=== PATIENT | female | born 1990 | race Caucasian/White ===

== ENCOUNTER 2017-10-05 10:44 | Outpatient (REF) | payer MEDICAID, SELFPAY ==
[2017-10-05 19:27] LABS: HCT 42.3 % (36.0-46.0); HGB 13.6 g/dL (12.0-15.5); Mean Corp. HGB Concentration 32.2 g/dL (32.0-36.0); Mean Corpuscular Hemoglobin 28.1 pg (27.0-33.0); Mean Corpuscular Volume 87.4 fL (80-95); Platelet Count 292 x1000/uL (130-400); RBC 4.84 m/cumm (4.00-5.20); RBC Distribution Width 15.2 % (11.7-14.6); White Blood Cell Count 4.87 k/cumm (4.4-10.8)
[2017-10-05 19:31] LABS: ALT 16 U/L (12-78); AST 19 U/L (15-37); Albumin 3.5 g/dL (3.4-5.0); Alkaline Phosphatase 85 U/L (46-116); Anion Gap 9.8 mmol/L (3-11); BUN 6 mg/dL (7-18); Bilirubin, Total 0.3 mg/dL (0.2-1.0); CO2 25.2 mmol/L (21.0-32.0); CREATININE 0.83 mg/dL (0.55-1.02); Calcium 8.5 mg/dL (8.5-10.1); Chloride 103 mmol/L (98-107); Cholesterol 283 mg/dL (50-200); Glucose 82 mg/dL (70-100); HDL Cholesterol 49 mg/dL (40-60); LDL CHOLESTEROL 208 mg/dL (<100); Potassium 3.8 mmol/L (3.5-5.1); Sodium 138 mmol/L (136-145); TSH (W/Ref FT4) 3.15 uIU/mL (0.358-3.74); Total Protein 7.6 g/dL (6.4-8.2); Triglyceride 103 mg/dL (30-150)
== END 2017-10-05 10:45 ==
LOC: NCHCN 10:44
PROVIDERS: PCP Nurse Practitioner Family; Visit Provider Nurse Practitioner Family
DX: R63.5 Abnormal weight gain (principal); Z87.448 Personal history of other diseases of urinary system
CPT/HCPCS: 80053; 80061; 83721; 85027; 84443

== ENCOUNTER 2018-06-23 13:04 | Outpatient (REF) | payer MEDICAID, SELFPAY ==
[2018-06-23 20:52] LABS: HCT 44.1 % (36.0-46.0); HGB 14.4 g/dL (12.0-15.5); Mean Corp. HGB Concentration 32.7 g/dL (32.0-36.0); Mean Corpuscular Hemoglobin 27.8 pg (27.0-33.0); Mean Corpuscular Volume 85.1 fL (80-95); Mean Platelet Volume 11.2 fL (8.0-11.0); Platelet Count 303 x1000/uL (130-400); RBC 5.18 m/cumm (4.00-5.20); RBC Distribution Width 13.8 % (11.7-14.6); White Blood Cell Count 8.12 k/cumm (4.4-10.8)
[2018-06-23 22:00] LABS: ALT 18 U/L (12-78); AST 15 U/L (15-37); Albumin 3.6 g/dL (3.4-5.0); Alkaline Phosphatase 121 U/L (46-116); BUN 5 mg/dL (7-18); Bilirubin, Total 0.5 mg/dL (0.2-1.0); CREATININE 0.82 mg/dL (0.55-1.02); Calcium 8.9 mg/dL (8.5-10.1); Chloride 101 mmol/L (98-107); Glucose 71 mg/dL (70-100); Potassium 4.3 mmol/L (3.5-5.1); Sodium 137 mmol/L (136-145); Total Protein 7.9 g/dL (6.4-8.2)
== END 2018-06-23 13:24 ==
LOC: NCHCN 13:04
PROVIDERS: PCP Physician Assistant Medical; Visit Provider Physician Assistant Medical
DX: R53.83 Other fatigue (principal); R63.5 Abnormal weight gain
CPT/HCPCS: 80053; 85027; 84443

== ENCOUNTER 2019-07-05 15:38 | Outpatient (REF) | payer MEDICAID, SELFPAY ==
--- NOTE | 2019-07-05 14:15 | PAPFT_PTH ---
PATIENT: Laisha Espino LOC: [facility] U#:[id number] AGE/SX: 29/F ROOM: RE07/05/[address]: Arminda Webber : 1990 BED: DIS: 07/05/2019 SPEC #: [id number] RECD: 07/06/19 12:12 STATUS: KRISTINA REQ #: [id number] VALERY: 07/05/19 14:[address]: Arminda Webber DEPT: [facility] Cytology RECD BY: Gaby Babin ENTERED: 07/06/19 12:12 SP TYPE: PAPFT OTHR DR: Jerel Hunter V Tissues: 1 - CX/ENDOCX FOR PAP SMEARS Procedures: PAP THIN PREP/[facility] Screening Comments: [id number]
== END 2019-07-05 15:58 ==
LOC: NCHCN 15:38
PROVIDERS: PCP Physician Assistant Medical; Visit Provider Physician Assistant
DX: Z12.4 Encounter for screening for malignant neoplasm of cervix (principal); Z01.419 Encounter for gynecological examination (general) (routine) without abnormal findings
CPT/HCPCS: 88142

== ENCOUNTER 2019-07-07 11:30 | Outpatient (REF) | payer MEDICAID, SELFPAY ==
[2019-07-07 18:50] LABS: Abs Immature Grans 0.02 k/cumm (0.0-0.09); Absolute Basophil Count 0.02 k/cumm (0.0-0.2); Absolute Eosinophil Count 0.26 k/cumm (0.0-0.7); Absolute Lymphocyte Count 1.99 k/cumm (1.2-3.4); Basophils % 0.3; Eosinophils % 3.3; HCT 40.6 % (36.0-46.0); HGB 13.3 g/dL (12.0-15.5); Immature Grans % 0.3 %; Lymphocytes % 24.9; Mean Corp. HGB Concentration 32.8 g/dL (32.0-36.0); Mean Corpuscular Hemoglobin 28.9 pg (27.0-33.0); Mean Corpuscular Volume 88.1 fL (80-95); Mean Platelet Volume 11.7 fL (8.0-11.0); Monocytes % 7.5; Neutrophils % 63.7; Platelet Count 277 x1000/uL (130-400); RBC 4.61 m/cumm (4.00-5.20); RBC Distribution Width 13.4 % (11.7-14.6); White Blood Cell Count 7.99 k/cumm (4.4-10.8)
[2019-07-07 19:42] LABS: Vitamin D 25 Total 9.6 ng/ml (30-100)
[2019-07-07 19:46] LABS: ALT 12 U/L (14-59); AST 13 U/L (15-37); Albumin 3.6 g/dL (3.4-5.0); Alkaline Phosphatase 77 U/L (46-116); Anion Gap 6.6 mmol/L (3-11); BUN 7 mg/dL (7-18); Bilirubin, Total 0.5 mg/dL (0.2-1.0); CO2 28.4 mmol/L (21.0-32.0); CREATININE 0.81 mg/dL (0.55-1.02); Calcium 8.6 mg/dL (8.5-10.1); Calculated LDL 219 mg/dL (<100); Chloride 104 mmol/L (98-107); Cholesterol 282 mg/dL (<200); Glucose 73 mg/dL (74-106); HDL Cholesterol 35 mg/dL (40-60); Magnesium 2.1 mg/dL (1.8-2.4); Potassium 4.2 mmol/L (3.5-5.1); Sodium 139 mmol/L (136-145); Total Protein 7.4 g/dL (6.4-8.2); Triglyceride 140 mg/dL (<150); Vitamin B12 193 pg/mL (193-986)
== END 2019-07-07 11:50 ==
LOC: NCHCN 11:30
PROVIDERS: PCP Physician Assistant Medical; Visit Provider Physician Assistant
DX: R51 Headache (principal); R53.83 Other fatigue; E78.5 Hyperlipidemia, unspecified; R63.5 Abnormal weight gain
CPT/HCPCS: 80053; 80061; 82306; 82607; 83735; 84439; 84443; 85025

== ENCOUNTER 2019-08-09 16:48 | Outpatient (REF) | payer MEDICAID, SELFPAY | END 2019-08-09 17:08 | LOC: NCHCN 16:48 | PROVIDERS: PCP Physician Assistant Medical; Visit Provider Nurse Practitioner Family | DX: N39.0 Urinary tract infection, site not specified (principal) | CPT/HCPCS: 87077; 87086; 87186 ==

== ENCOUNTER 2021-01-31 10:19 | Outpatient (REF) | payer MEDICAID, SELFPAY ==
[2021-01-31 20:25] LABS: ALT 20 U/L (14-59); AST 15 U/L (15-37); Albumin 3.7 g/dL (3.4-5.0); Alkaline Phosphatase 63 U/L (46-116); Anion Gap 9.2 mmol/L (3-11); BUN 9 mg/dL (7-18); CO2 26.8 mmol/L (21.0-32.0); CREATININE 0.9 mg/dL (0.55-1.02); Calcium 8.9 mg/dL (8.5-10.1); Calculated LDL 238 mg/dL (<100); Chloride 101 mmol/L (98-107); Cholesterol 297 mg/dL (<200); Glucose 99 mg/dL (74-106); HDL Cholesterol 39 mg/dL (40-60); Potassium 4.4 mmol/L (3.5-5.1); Sodium 137 mmol/L (136-145); Total Protein 7.4 g/dL (6.4-8.2); Triglyceride 104 mg/dL (<150)
== END 2021-01-31 10:20 | disposition home or self-care (01) ==
LOC: NCHCN 10:19
PROVIDERS: PCP Physician Assistant Medical; Visit Provider Physician Assistant
DX: E78.49 Other hyperlipidemia (principal); Z00.00 Encounter for general adult medical examination without abnormal findings
CPT/HCPCS: 80053; 80061